=== PATIENT | female | born 1965 | race Caucasian/White ===

== ENCOUNTER 2017-11-27 08:20 | Outpatient (CLI) | payer OTHER ==
--- NOTE | 2017-11-27 10:11 | MMO ---
BILATERAL DIGITAL SCREENING MAMMOGRAMS: HISTORY: This 52-year-old female presents for digital screening mammography. COMPARISON: No old films available for comparison, so this will be treated as a baseline study. This patient's mammogram is interpreted with the assistance of computer-aided detection. FINDINGS: Scattered areas of fibroglandular density are noted bilaterally. There are some nodular foci noted w ithin the right breast, 1 on the MLO view inferiorly and 2 on the MLO view, 1 medially and the other one centrally. These need additional imaging for further assessment. No malignant microcalcificatio ns or architectural distortion. IMPRESSION: BI-RADS category 0, assessment was incomplete. Needs additional imaging evaluation. Followup right unilateral diagnostic mammogram including CC and MLO and 90-degree mediolateral proje ctions with 3D is recommended for further assessment. Additionally, an ultrasound should exam should be scheduled and could be performed if needed at the same time as the diagnostic mammogram. BIRADS 0: Incomplete: Need Additional Imaging Evaluation and/or Prior Mammograms for Comparison POS: JAVIER
== END 2017-11-27 08:21 | disposition home or self-care (01) ==
LOC: SCSMAMMO 08:20
PROVIDERS: ATTEND Family Medicine
DX: Z12.31 Encounter for screening mammogram for malignant neoplasm of breast (principal); E11.9 Type 2 diabetes mellitus without complications; I10 Essential (primary) hypertension
CPT/HCPCS: 77067

== ENCOUNTER 2018-01-30 08:19 | Outpatient (CLI) | payer OTHER | END 2018-01-30 08:20 | disposition home or self-care (01) | LOC: BICMAMMO 08:19 | PROVIDERS: ATTEND Family Medicine | DX: R92.2 Inconclusive mammogram (principal); N63.20 Unspecified lump in the left breast, unspecified quadrant; Z80.3 Family history of malignant neoplasm of breast | CPT/HCPCS: G0279 ==

== ENCOUNTER 2019-02-27 17:25 | Emergency (ER) | payer OTHER ==
[~2019-02-27 17:25] MED LIST: ISOVUE-370 76%-LOCM 1 ML ONE
--- NOTE | 2019-02-27 18:20 | RAD ---
EXAM: CHEST ONE VIEW HISTORY: Shortness of breath and chest pain COMPARISON: None FINDINGS: The cardiac silhouette and pulmonary vasculature is within normal limits. The lungs are clear. The os seous structures are intact. IMPRESSION: No acute cardiopulmonary process.
[2019-02-27 18:54] LABS: #Basophils 0.1 thou/uL (0.0-0.2); #Eosinphils 0.2 thou/uL (0.0-0.7); #Lymphocytes 4.1 thou/uL (1.20-3.40); #Monocytes 0.8 thou/uL (0.11-0.59); #Neutrophils 8.3 thou/uL (1.40-6.50); %Basophils 0.5 % (0.0-1.0); %Eosinophils 1.7 % (0.0-10.0); %Lymphocytes 30.4 % (21.0-51.0); %Monocytes 5.6 % (0.0-10.0); %Neutrophils 61.9 % (42.0-75.0); Hemoglobin 13.7 g/dL (12.0-16.0); Mean Corpuscular HGB CONC 33.3 g/dL (32.0-36.0); Mean Corpuscular Hemoglobin 28.4 pg (27.0-31.0); Mean Corpuscular Volume 85.3 fL (78.0-98.0); Mean Platelet Volume 8.1 fL (7.4-10.4); Platelet Count 378 thou/uL (130-400); RBC Distribution Width 12.8 % (11.5-14.5); Red Blood Cell (RBC) Count 4.82 mill/uL (4.20-5.40); White Blood Cell (WBC) Count 13.5 thou/uL (4.8-10.8)
[2019-02-27 19:15] LABS: ALT (SGPT) 48 U/L (8-55); AST (SGOT) 23 U/L (5-34); Albumin 4.7 g/dL (3.5-5.0); Alkaline Phosphatase 160 U/L (40-150); Anion Gap 18 mmol/L (10-20); BUN (Urea Nitrogen) 20 mg/dL (9.8-20.1); Bilirubin, Total 0.4 mg/dL (0.2-1.2); CK (CPK) 78 U/L (29-168); Calc. Creatinine Clearance 0 mL/min (70-130); Calcium 10.4 mg/dL (7.8-10.44); Carbon Dioxide 24 mmol/L (22-29); Chloride 101 mmol/L (98-107); Estimated GFR-MDRD 60; Globulin 3.1 g/dL (2.4-3.5); Glucose 129 mg/dL (70-105); Lipase 19 U/L (8-78); Protein, Total 7.8 g/dL (6.0-8.3); Sodium 139 mmol/L (136-145)
[2019-02-27] MEDS ORDERED: Morphine 4 MG/ML VIAL ONE (19:40)
[2019-02-27] MEDS ORDERED: Ketorolac Tromethamine 30 MG/ML VIAL ONE (19:41)
--- NOTE | 2019-02-27 19:48 | ULT ---
EXAM: GALLBLADDER ULTRASOUND: 02/27/19 HISTORY: Evaluate for cholecystitis. Epigastric pain. COMPARISON: None. FINDINGS: The head of the pancreas has a normal echotexture. The remainder of the pancreas is obscured by bowel gas. Increased echogenicity of the liver may be due to hepatic steatosis or hepatocellular disease. Subsequent evaluation for hepatic masses and intrahepatic biliary dilatation is limited. The contour of the hepatic margin is maintained. Common bile duct diameter is 0.5 cm. No sonographic evidence of cholelithiasis, gallbladder wall thic k[place] or pericholecystic fluid. Negative Syed's sign. Right renal cortical thinning. No hydronephrosis. Right kidney measures 10.2 x 4.0 x 4.2 cm. IMPRESSION: 1. Increased echogenicity of the liver which may be due to hepatic steatosis or hepatocellular d isease. If there is concern for masses, liver mass protocol CT can be performed. 2. No sonographic evidence of cholelithiasis or cholecystitis. POS: PPP
[2019-02-27 20:41] LABS: Bilirubin Negative (Negative); Blood, Urine Negative (Negative); Clarity Clear (Clear); Glucose, Urine (Dipstick) Normal (Negative); Leukocyte 75 Leu/uL (Negative); Mucous/LPF Rare LPF (<2+); Nitrite Negative (Negative); Protein, Urine (Dipstick) Negative (Neg-Trace); RBC/HPF 0-3 HPF (0-3); Squamous Epithelial 0-3 HPF (0-3); WBC/HPF 0-3 HPF (0-3)
[2019-02-27 20:50] LABS: Bacteria/HPF Rare-Few HPF (None Seen)
--- NOTE | 2019-02-27 21:03 | CT ---
CT ANGIOGRAM THORAX WITH IV CONTRAST AND 3-D RECONSTRUCTIONS CLINICAL INDICATION: Shortness of breath. COMPARISON: None FINDINGS: Pulmonary arteries: No filling defects are seen in the pulmonary arteries to suggest a pulmonary embo leni. Aorta: Mild scattered vascular calcifications and atherosclerotic plaque is present in the thoracic a david. Thoracic aorta is normal in caliber without evidence of an aortic dissection. Lungs: Mild atelectasis predominantly at each lung base. Lungs otherwise appear clear. Mediastinum: There is no evidence of lymphadenopathy. Thyroid gland: Normal appearance where visualized. Osseous structures: No acute process. Chest wall: No abnormality visualized. Upper abdomen: Within normal limits for phase of imaging. IMPRESSION: 1. No CT evidence of a pulmonary embolus.
[2019-02-27] MEDS ORDERED: Mag-Al 1200 mg/1200 mg/30 ML UDCUP ONE (21:15)
[2019-02-27] MEDS ORDERED: Lidocaine Viscous Sol 2% 15 ml UD Cup ONE (21:15)
== END 2019-02-27 22:27 ==
LOC: ERS 17:25
DX: K29.70 Gastritis, unspecified, without bleeding (principal); K82.8 Other specified diseases of gallbladder; E11.9 Type 2 diabetes mellitus without complications; E78.5 Hyperlipidemia, unspecified; I10 Essential (primary) hypertension; F41.9 Anxiety disorder, unspecified; Z79.82 Long term (current) use of aspirin; Z79.899 Other long term (current) drug therapy; Z79.84 Long term (current) use of oral hypoglycemic drugs
CPT/HCPCS: 36415; 71045; 71275; 76705; 80053; 81003; 81015; 82550; 83690; 83880; 84484; 85025; 85379; 93005; 94760; 96374; 96375; J1885; J2270; Q9966